=== PATIENT | female | born 1990 | race American Indian/Alaskan Native ===

== ENCOUNTER 2016-10-24 21:25 | Emergency (ER) | payer SELFPAY ==
[2016-10-24 21:31] VITALS: TEMP 98.4; O2SAT 98
[2016-10-24 22:09] LABS: RBC URINE < 1 /hpf (0-3); URINE BACTERIA RARE (<OCC); URINE BILIRUBIN NEGATIVE (NEGATIVE); URINE BLOOD NEGATIVE (NEGATIVE); URINE COLOR Colorless (YELLOW); URINE GLUCOSE (UA) NORMAL (Normal); URINE KETONE NEGATIVE (NEGATIVE); URINE LEUKOCYTE ESTERASE NEG Leu/uL (Negative); URINE PROTEIN NEGATIVE (NEGATIVE); URINE UROBILINOGEN NORMAL mg/dL (0.2-1.0); WBC URINE < 1 /hpf (0-5)
--- NOTE | 2016-10-24 22:28 | C.PDOC ---
History Of Present Illness pt with suprapubic discomfort. LMP 09/23. Unsure if . NO f/c/n/v. no dysuria Time Seen by Provider: 10/24/16 21:42 Chief Complaint (Nursing): Abdominal Pain History Per: Patient History/Exam Limitations: no limitations Onset/Duration Of Symptoms: Days Current Symptoms Are (Timing): Still Present Context: Other Severity: Moderate Pain Scale Rating Of: 4 Location Of Pain/Discomfort: Suprapubic Radiation Of Pain To:: None Quality Of Discomfort: Dull, Aching Associated Symptoms: denies: Fever, Chills, Nausea, Vomiting Exacerbating Factors: None Alleviating Factors: None Last Bowel Movement: Today Recent travel outside of the [place]: No Additional History Per: Family Abnormal Vaginal Bleeding: No Past Medical History Reviewed: Historical Data, Nursing Documentation, Vital Signs Vital Signs: Last Vital Signs Temp 98.4 F 10/24/16 21:29 Pulse 100 H 10/24/16 21:29 Resp 16 10/24/16 21:29 BP 136/78 10/24/16 21:29 Pulse Ox 98 10/24/16 23:23 Family History: States: No Known Family Hx - Social History Hx Alcohol Use: Yes Hx Substance Use: No - Immunization History Hx Tetanus Toxoid Vaccination: No Hx Influenza Vaccination: No Hx Pneumococcal Vaccination: No Review Of Systems Constitutional: Negative for: Fever, Chills Eyes: Negative for: Redness ENT: Negative for: Throat Pain Cardiovascular: Negative for: Chest Pain, Palpitations Respiratory: Negative for: Shortness of Breath Gastrointestinal: Positive for: Abdominal Pain. Negative for: Nausea, Vomiting Genitourinary: Negative for: Dysuria, Frequency Musculoskeletal: Negative for: Back Pain Skin: Negative for: Rash, Lesions, Jaundice, Bruising Neurological: Negative for: Weakness Psych: Negative for: Anxiety Physical Exam - Physical Exam Appears: Non-toxic, No Acute Distress Skin: Warm, Dry Head: Normacephalic Eye(s): bilateral: Normal Inspection Oral Mucosa: Moist Chest: Symmetrical Cardiovascular: Rhythm Regular Respiratory: No Rales, No Rhonchi, No Wheezing Gastrointestinal/Abdominal: Soft, Tenderness (suprapubic), No Distention, No Guarding, No Rebound Back: Normal Inspection Extremity: Normal ROM Extremity: Bilateral: Atraumatic, Normal Color And Temperature Neurological/Psych: Oriented x3, Normal Speech, Normal Cognition Gait: Steady ED Course And Treatment - Laboratory Results Result Diagrams: 10/24/16 22:30 10/24/16 22:30 O2 Sat by Pulse Oximetry: 98 Pulse Ox Interpretation: Normal Progress Note: ua, uhcg, blood work, ivf Reevaluation Time: 02:16 Reassessment Condition: Improved Disposition Counseled Patient/Family Regarding: Studies Performed, Diagnosis, Need For Followup - Disposition Referrals: [facility] [Outside] Disposition Time: 22:00 Condition: FAIR Instructions: (ED) - Clinical Impression Clinical Impression:
[2016-10-24 22:32] LABS: BASO # 0.1 K/uL (0.0-0.2); BASO % 0.5 % (0.0-2.0); EOS # 0.1 K/uL (0.0-0.7); EOS % 0.9 % (0.0-4.0); HEMATOCRIT 35.5 % (34.0-47.0); LYMPH % 16.3 % (20.0-40.0); MEAN CELL VOLUME 90.4 fL (81.0-99.0); MEAN CORPUSCULAR HEMOGLOBIN 30.6 pg (27.0-31.0); MEAN CORPUSCULAR HGB CONC 33.9 g/dL (33.0-37.0); MEAN PLATELET VOLUME 8.2 fL (7.2-11.7); MONO # 0.7 K/uL (0.0-0.8); MONO % 5.6 % (0.0-10.0); RED CELL DISTRIBUTION WIDTH 12.6 % (11.5-14.5); WHITE BLOOD COUNT 12.5 K/uL (4.8-10.8)
[2016-10-24 22:43] LABS: CHLORIDE 101 mmol/L (98-107)
[2016-10-24 22:44] LABS: POTASSIUM 4.2 mmol/L (3.6-5.2); SODIUM 132 mmol/L (132-148)
[2016-10-24 22:46] LABS: ALB/GLOB RATIO 1.2 (1.0-2.1); AST/SGOT 20 U/L (14-36); BILIRUBIN,TOTAL 0.5 mg/dL (0.2-1.3); CARBON DIOXIDE 21 mmol/L (22-30); GFR AFRICAN-AMERICAN > 60; TOTAL PROTEIN 7.5 g/dL (6.3-8.3)
[2016-10-24 22:47] LABS: ALKALINE PHOSPHATASE 73 U/L (38-126); ALT/SGPT 17 U/L (9-52); BLOOD UREA NITROGEN 5 mg/dL (7-17); CALCIUM 9.4 mg/dl (8.6-10.4); GLUCOSE,RANDOM 91 mg/dL (65-105)
--- NOTE | 2016-10-25 02:00 | US ---
EXAM: US After First Trimester, Transabdominal CLINICAL HISTORY: 26 years old, female; Pain; complicated by abdominal or pelvic pain; Lower; Second trimester; Gestational age or lmp: 09/23/16; ; Additional info: Abd pain, hcg 6700 TECHNIQUE: Real-time transabdominal obstetrical ultrasound of the maternal pelvis and a second or third trimester with image documentation. COMPARISON: No relevant prior studies available. FINDINGS: Fetus: Single live intrauterine gestation. Heart rate: heart rate of 150 beats per minute. Presentation: Variable. Placenta: Posterior. Tip 1.6 cm from cervical os. No placental abruption. Amniotic fluid: Normal. Anatomy: No gross anomaly is appreciated. BIOMETRICS Gestational age by US: Estimated gestational age of 19 weeks 5 days by measurements. EFW: Estimated weight of 323 g. BPD: 4.4 cm, correlating with 19 weeks 2 days. HC: 16.9 cm, correlating with 19 weeks 4 days. AC: 14.8 cm, correlating with 20 weeks 1 day. FL: 3.2 cm, correlating with 19 weeks 6 days. MATERNAL: Uterus: Unremarkable. No myometrial mass. Cervix: No cervical dilatation or effacement. Free fluid: No free fluid. IMPRESSION: 1. Single live intrauterine gestation. 2. Low lying placenta. 3. Incidental/non-acute findings are described above. EXAM: US , Transvaginal CLINICAL HISTORY: 26 years old, female; Pain; complicated by abdominal or pelvic pain; Lower; Second trimester; Gestational age or lmp: 09/23/16; ; Additional info: Abd pain, hcg 6700 TECHNIQUE: Real-time endovaginal obstetrical ultrasound of the maternal pelvis and second or third trimester with image documentation. Endovaginal imaging was used for better evaluation of the cervix. COMPARISON: No relevant prior studies available. FINDINGS: Fetus: Single live intrauterine gestation. Heart rate: heart rate of 150 beats per minute. Presentation: Variable. Placenta: Posterior. Tip 1.6 cm from cervical os. No placental abruption. Amniotic fluid: Normal. Anatomy: No gross anomaly is appreciated. BIOMETRICS Gestational age by US: Estimated gestational age of 19 weeks 5 days by measurements. EFW: Estimated weight of 323 g. BPD: 4.4 cm, correlating with 19 weeks 2 days. HC: 16.9 cm, correlating with 19 weeks 4 days. AC: 14.8 cm, correlating with 20 weeks 1 day. FL: 3.2 cm, correlating with 19 weeks 6 days. MATERNAL: Uterus: Unremarkable. No myometrial mass. Cervix: No cervical dilatation or effacement. Free fluid: No free fluid.
[2016-10-25 02:34] VITALS: BP 124/75; PULSE 75; RESP 18
== END 2016-10-25 02:34 | disposition home or self-care (01) ==
LOC: C.ER 21:25
DX: O26.892 Other specified pregnancy related conditions, second trimester (principal); Z3A.19 19 weeks gestation of pregnancy; R10.30 Lower abdominal pain, unspecified

== ENCOUNTER 2018-09-11 19:28 | Emergency (ER) | payer SELFPAY ==
[2018-09-11 19:29] VITALS: BMI 42.5
[2018-09-11 19:47] VITALS: BP 135/76; PULSE 97; RESP 20; TEMP 98.8; O2SAT 100
[2018-09-11] MEDS ORDERED: Amoxicillin-Clav 875-125 mg Tab PO STA (20:08)
[2018-09-11] MEDS ORDERED: Amoxicillin-Clav 875-125 mg Tab PO ONE (20:14)
--- NOTE | 2018-09-11 20:24 | C.PDOC ---
History Of Present Illness 28 y/o female presents to the ED for evaluation of sore throat x 1 week. Patient states she avoided taking any [id number] medication for the pain and has been drinking teas and staying hydrated with water and orange juice, with no relief. Patient then developed blisters around her teeth with adenopathy in the neck and grew concerned. Patient admits to sick contacts at work. She denies fever, chills, headache, dizziness, rash, chest pain, shortness of breath, cough, nausea, vomiting, abdominal pain. Time Seen by Provider: 09/11/18 19:50 Chief Complaint (Nursing): ENT Problem History Per: Patient History/Exam Limitations: no limitations Onset/Duration Of Symptoms: Hrs Current Symptoms Are (Timing): Still Present Location Of Pain: Throat Associated Symptoms: Sore Throat. denies: Fever, Chills, Nausea, Vomiting Additional History Per: Patient Past Medical History Reviewed: Historical Data, Nursing Documentation, Vital Signs Vital Signs: Last Vital Signs Temp 98.8 F 09/11/18 19:45 Pulse 97 H 09/11/18 19:45 Resp 20 09/11/18 19:45 BP 135/76 09/11/18 19:45 Pulse Ox 100 09/11/18 19:45 - Medical History PMH: No Chronic Diseases Denies: Depression, Diabetes, HTN Surgical History: No Surg Hx - [facility] Procedures DELIVERY OF PRODUCTS OF CONCEPTION, EXTERNAL APPROACH (03/22/17) MONITORING OF POC, CARDIAC RATE, MOBILE ELECTRONICS INSTALLER APPROACH (03/22/17) REPAIR PERINEUM MUSCLE, OPEN APPROACH (03/22/17) Family History: States: Unknown Family Hx - Social History Hx Alcohol Use: Yes Hx Substance Use: No - Immunization History Hx Tetanus Toxoid Vaccination: No Hx Influenza Vaccination: No Hx Pneumococcal Vaccination: No Review Of Systems Constitutional: Negative for: Fever, Chills ENT: Positive for: Throat Pain Cardiovascular: Negative for: Chest Pain Respiratory: Negative for: Cough, Shortness of Breath Gastrointestinal: Negative for: Nausea, Vomiting, Abdominal Pain Skin: Negative for: Rash Neurological: Negative for: Headache, Dizziness Physical Exam - Physical Exam Appears: Non-toxic, No Acute Distress Skin: Normal Color, Warm, Dry, No Rash Head: Atraumatic, Normacephalic Eye(s): bilateral: Normal Inspection Ear(s): Bilateral: TM Obscured By Wax Nose: Normal, No Discharge Oral Mucosa: Moist, Other (no blisters noted on hard and soft palate ) Tongue: Other (one blister noted under the tongue ) Gingiva: Other (blisters noted on gingiva ) Throat: No Exudate, Other (enlarged, erythematous tonsils) Neck: Supple Chest: Symmetrical, No Deformity, No Tenderness Cardiovascular: Rhythm Regular, No Murmur Respiratory: Normal Breath Sounds, No Rales, No Rhonchi, No Wheezing Extremity: Normal ROM, Capillary Refill (less than 2 seconds ) Neurological/Psych: Oriented x3, Normal Speech, Normal Cognition ED Course And Treatment O2 Sat by Pulse Oximetry: 100 (on RA) Pulse Ox Interpretation: Normal Medical Decision Making Medical Decision Making: Progress: Augmentin PO given or pharyngitis. Patient will be given Rx for Magic Mouth wash and advised to follow up with dentist if symptoms persist or worsen. patient verbalizes understanding and is stable for discharge Disposition Counseled Patient/Family Regarding: Diagnosis, Need For Followup, Rx Given - Disposition Referrals: [facility] [Outside] Jared Antoine DDS [Medical Doctor] - Diann Flanagan DMD [Staff Provider] - Disposition: HOME/ ROUTINE Disposition Time: 20:29 Condition: STABLE Additional Instructions: Continue Augmentin BID for 10 days Rest and Hydration Salt water gargles 4 times a day Start Magic Mouthwash twice a day Follow up with Dentist if ulcers do not improve with mouthwash Return to ED if symptoms worsen Prescriptions: Amoxicillin/Clavulanate [Augmentin 875 MG-125 MG] 1 tab PO BID #19 tab Mag&Al/Simet/Diphen/Lido [First Magic Mouthwash] 30 ml MM BID #1 kit Instructions: Sore Throat, Adult (DC), Bacterial Upper Respiratory Infection, Adult (DC) Forms: My eStore App ([employer]) - Clinical Impression Clinical Impression: Pharyngitis - PA / SCIENTIFIC DIRECTOR / Resident Statement MD/DO has reviewed & agrees with the documentation as recorded. - Scribe Statement The provider has reviewed the documentation as recorded by the Scribe (Jasmin Knox) All medical record entries made by the Scribe were at my direction and personally dictated by me. I have reviewed the chart and agree that the record accurately reflects my personal performance of the history, physical exam, medical decision making, and the department course for this patient. I have also personally directed, reviewed, and agree with the discharge instructions and disposition.
== END 2018-09-11 20:44 | disposition home or self-care (01) ==
LOC: C.ER 19:28
DX: J02.9 Acute pharyngitis, unspecified (principal)